=== PATIENT | female | born 1985 ===

== ENCOUNTER 2017-09-24 21:55 | Inpatient (IN) | payer OTHER ==
[2017-09-25 00:58] VITALS: BMI 24.8
[2017-09-25] MEDS ORDERED: MORPHINE SULFATE/PF 10MG/10ML VL IVP PRN (01:48)
[2017-09-25] MEDS ORDERED: ONDANSETRON 4 MG/2 ML VIAL IVP PRN (01:49)
[2017-09-25] MEDS: DEXTROSE 5%-0.9% NACL 1,000 ML IV SCH ×2 (02:15→11:39)
[2017-09-25] MEDS: KETOROLAC 30 MG/ML 1 ML VIAL IVP PRN ×4 (02:16→20:43)
[2017-09-25] MEDS: MORPHINE SULFATE 4 MG/ML SYRINGE IVP PRN ×4 (04:17→22:55)
[2017-09-25 08:58] LABS: Basophils % (A) 0 %; Eosinophils # (A) 0.2 k/uL (0-0.7); Eosinophils % (A) 4 %; HCT 36.3 % (34.0-46.0); HGB 11.7 gm/dL (11.4-16.0); Lymphocytes # (A) 1.5 k/uL (1.0-4.8); Lymphocytes % (A) 37 %; MCH 30.4 pg (25.0-35.0); MCHC 32.3 g/dL (31.0-37.0); MCV 94.2 fL (80.0-100.0); Monocytes # (A) 0.2 k/uL (0-1.0); Monocytes % (A) 5 %; Neutrophils % (A) 51 %; Platelet Count 199 k/uL (150-450); RBC 3.85 m/uL (3.80-5.40)
[2017-09-25 09:13] LABS: ALT 40 U/L (9-52); AST 49 U/L (14-36); Albumin 3.8 g/dL (3.5-5.0); Alkaline Phosphatase 51 U/L (38-126); Anion Gap 11 mmol/L; Blood Urea Nitrogen 4 mg/dL (7-17); Calcium 7.2 mg/dL (8.4-10.2); Carbon Dioxide 24 mmol/L (22-30); Chloride 106 mmol/L (98-107); Glucose 79 mg/dL (74-99); Potassium 3.7 mmol/L (3.5-5.1); Sodium 141 mmol/L (137-145); Total Bilirubin 0.4 mg/dL (0.2-1.3); Total Protein 6.3 g/dL (6.3-8.2)
--- NOTE | 2017-09-25 09:19 | XR ---
EXAMINATION TYPE: XR abdomen acute w cxr DATE OF EXAM: 09/25/2017 COMPARISON: NONE HISTORY: Ileus, abdominal pain left lower quadrant TECHNIQUE: Supine, upright, and frontal chest views of the abdomen are obtained. FINDINGS: Chest x-ray is normal. There is no evidence for pneumoperitoneum. The bowel gas pattern is unremarkable as there is air throughout nondilated small and large bowel. There are some air-fluid levels without bowel distention. No mass effects are seen. No unusual calcifications. There is mild spinal curvature. IMPRESSION: Findings could represent ileus or enteritis, follow-up as indicated.
[2017-09-25] MEDS ORDERED: LORazepam 2 MG/ML INJ IV PRN ×2 (12:08)
[2017-09-25] MEDS: SODIUM CHLORIDE 0.9% 1,000 ML IV SCH (12:19)
[2017-09-25] MEDS ORDERED: LORATADINE 10 MG TAB PO PRN (12:24)
[2017-09-25] MEDS ORDERED: FLUTICASONE 50MCG/SPRAY NASAL 16GM NASAL PRN (12:24)
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
[2017-09-25] MEDS: LORazepam 2 MG/ML INJ IV PRN ×2 (13:52→23:37)
[2017-09-25] MEDS: HEPARIN SODIUM,PORCINE 5,000 UNIT/ML 1 ML VIAL SQ SCH ×2 (13:53→20:22)
[2017-09-25] MEDS: PANTOPRAZOLE 40 MG/10 ML VIAL IVP SCH (13:53)
[2017-09-25 14:48] LABS: Appearance,Urine Clear (Clear); Bilirubin,Urine Negative (Negative); Blood,Urine Trace (Negative); Color,Urine Light Yellow; Glucose,Urine (UA) Negative (Negative); Hyaline Casts,Urine 1 /lpf (0-2); Ketones,Urine 2+ (Negative); Leukocyte Esterase,Urine Negative (Negative); Mucus,Urine Rare /hpf; Nitrite,Urine Negative (Negative); PH, Urine 6.5 (5.0-8.0); Protein,Urine Trace (Negative); RBC,Urine <1 /hpf (0-5); Specific Gravity,Urine 1.009 (1.001-1.035); Squamous Epithelial Cell,Urine 1 /hpf (0-4); Urobilinogen,Urine <2.0 mg/dL (<2.0); WBC,Urine <1 /hpf (0-5)
[2017-09-25] MEDS ORDERED: LISINOPRIL-HCTZ 20-12.5 MG 1 EACH TAB PO SCH (21:00)
[2017-09-26] MEDS: SODIUM CHLORIDE 0.9% 1,000 ML IV SCH (00:23)
[2017-09-26] MEDS: MORPHINE SULFATE 4 MG/ML SYRINGE IVP PRN (07:44)
[2017-09-26] MEDS: PANTOPRAZOLE 40 MG/10 ML VIAL IVP SCH (07:45)
[2017-09-26] MEDS: HEPARIN SODIUM,PORCINE 5,000 UNIT/ML 1 ML VIAL SQ SCH (07:45)
[2017-09-26 07:51] VITALS: BP 134/94; PULSE 73; RESP 16; TEMP 99
[2017-09-26 07:59] LABS: Basophils % (A) 1 %; Eosinophils # (A) 0.2 k/uL (0-0.7); Eosinophils % (A) 5 %; HCT 37.9 % (34.0-46.0); HGB 12.5 gm/dL (11.4-16.0); Lymphocytes # (A) 1.2 k/uL (1.0-4.8); Lymphocytes % (A) 34 %; MCH 31.1 pg (25.0-35.0); Mean Platelet Volume 7.4; Monocytes # (A) 0.2 k/uL (0-1.0); Monocytes % (A) 6 %; Neutrophils # (A) 1.9 k/uL (1.3-7.7); Neutrophils % (A) 53 %; Platelet Count 196 k/uL (150-450); RBC 4.03 m/uL (3.80-5.40); RDW 13.7 % (11.5-15.5); WBC 3.6 k/uL (3.8-10.6)
[2017-09-26 08:22] LABS: Anion Gap 11 mmol/L; Blood Urea Nitrogen 5 mg/dL (7-17); Calcium 8.4 mg/dL (8.4-10.2); Carbon Dioxide 27 mmol/L (22-30); Chloride 102 mmol/L (98-107); Glucose 93 mg/dL (74-99); Potassium 3.2 mmol/L (3.5-5.1); Sodium 140 mmol/L (137-145)
--- NOTE | 2017-09-26 08:32 | P.PN ---
Subjective Progress Note Date: 09/26/17 Patient seen and examined at bedside. She states her abdominal pain is relieved. She has had bowel function. She is tolerating a soft diet. She denies any nausea and vomiting. Objective - Vital Signs Vital signs: Vital Signs Temp 99.0 F 09/26/17 07:00 Pulse 73 09/26/17 07:00 Resp 16 09/26/17 07:00 BP 134/94 09/26/17 07:00 Pulse Ox 98 09/26/17 07:00 Intake & Output 09/25/17 09/26/17 09/26/17 18:59 06:59 18:59 Intake Total 500 Balance 500 Weight 72 kg Intake: Oral 500 Other: # Voids 1 1 - Constitutional General appearance: Present: cooperative - Neck Neck: Present: normal ROM - Respiratory Details: No difficulty with respiration - Gastrointestinal Gastrointestinal Comment(s): Soft, nontender, nondistended, no rebound, no guarding - Psychiatric Psychiatric: Present: A&O x's 3, appropriate affect - Labs CBC & Chem 7: 09/26/17 07:22 09/26/17 07:22 Labs: Abnormal Lab Results - Last 24 Hours (Table) 09/25/17 09/25/17 09/26/17 Range/Units 08:44 14:20 07:22 WBC 3.6 L (3.8-10.6) k/uL Potassium (3.5-5.1) mmol/L BUN 4 L (7-17) mg/dL Calcium 7.2 L (8.4-10.2) mg/dL AST 49 H (14-36) U/L Urine Protein Trace H (Negative) Urine Ketones 2+ H (Negative) Urine Blood Trace H (Negative) Urine Mucus Rare H (None) /hpf 09/26/17 Range/Units 07:22 WBC (3.8-10.6) k/uL Potassium 3.2 L (3.5-5.1) mmol/L BUN 5 L (7-17) mg/dL Calcium (8.4-10.2) mg/dL AST (14-36) U/L Urine Protein (Negative) Urine Ketones (Negative) Urine Blood (Negative) Urine Mucus (None) /hpf Assessment and Plan (1) Ileus Narrative/Plan: 32-year-old female with ileus, resolving - Tolerating diet - Continue to increase activity - No plan for any surgical intervention. Surgically stable for discharge. - Medical management Current Visit: Yes Status: Acute Code(s): K56.7 - ILEUS, UNSPECIFIED SNOMED Code(s): 011039319
[2017-09-26] MEDS ORDERED: Potassium Replacement Protocol 1 EACH MISC MISCELLANE PRN (09:17)
[2017-09-26] MEDS: POTASSIUM CHLORIDE ER 20 MEQ TAB.ER PO SCH ×2 (10:03→10:45)
[2017-09-26] MEDS: KETOROLAC 30 MG/ML 1 ML VIAL IVP PRN (10:44)
[2017-09-26] MEDS ORDERED: MORPHINE ORAL SOLN 10 MG/5 ML CUP PO PRN (13:53)
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
[2017-09-27] MEDS ORDERED: PANTOPRAZOLE 40 MG TABLET PO SCH (07:30)
== END 2017-09-26 14:04 | disposition home or self-care (01) | DRG 390 ==
LOC: 4MS4W 09-25 00:22
PROVIDERS: ADMIT Internal Medicine; ATTEND Internal Medicine
DX: K56.7 Ileus, unspecified (principal); F17.200 Nicotine dependence, unspecified, uncomplicated; G40.909 Epilepsy, unspecified, not intractable, without status epilepticus; G43.909 Migraine, unspecified, not intractable, without status migrainosus; G89.4 Chronic pain syndrome; I10 Essential (primary) hypertension; K52.9 Noninfective gastroenteritis and colitis, unspecified; K70.10 Alcoholic hepatitis without ascites; Z82.49 Family history of ischemic heart disease and other diseases of the circulatory system; Z81.1 Family history of alcohol abuse and dependence; Z88.0 Allergy status to penicillin; Z88.8 Allergy status to other drugs, medicaments and biological substances; Z87.820 Personal history of traumatic brain injury; V89.2XXS Person injured in unspecified motor-vehicle accident, traffic, sequela; F41.9 Anxiety disorder, unspecified; F32.9 Major depressive disorder, single episode, unspecified; Z79.3 Long term (current) use of hormonal contraceptives; Z79.899 Other long term (current) drug therapy
CPT/HCPCS: 74022; 80048; 80053; 81001; 83735; 85025